=== PATIENT | male | born 1960 | race Caucasian/White ===

== ENCOUNTER → 2016-12-12 | Day surgery (SDC) | payer OTHER ==
[~2016-12-12] MED LIST: ATOR10TA60 PO; HYDROmorphone 2 MG/ML VIAL IV PRN; INSU100V SQ; INSU3INS SQ; IV RINGERS,LACTATED 1000ML 1,000 ML IV SCH; LIDO700A4 TP; LIDOCAINE 1% PF 2 ML VIAL. ID PRN; LIDOCAINE 2% PF Vial for OR 5 ML VIAL. ONE; LOSA25TA4 PO; MORPHINE SULFATE 2 MG/ML DISP.SYRIN. IV PRN; ONDANSETRON PF 4 MG/2 ML VIAL. IV PRN; PIOG1TAB24 PO; PREG200C PO; PROCHLORPERAZINE 10 MG/2 ML VIAL. IV PRN; PROPOFOL 20 ML IV ONE; PROPOFOL 40 ML IV ONE; fentaNYL PF VIAL 100 MCG/2 ML VIAL IV PRN
[2016-12-12 08:26] VITALS: BP 100/61
== END | disposition home or self-care (01) ==
LOC: ENDOS 06:50
PROVIDERS: ATTEND Internal Medicine Gastroenterology
DX: K57.30 Diverticulosis of large intestine without perforation or abscess without bleeding (principal); K64.0 First degree hemorrhoids; Z80.0 Family history of malignant neoplasm of digestive organs; F41.9 Anxiety disorder, unspecified; F32.9 Major depressive disorder, single episode, unspecified; E78.00 Pure hypercholesterolemia, unspecified; I10 Essential (primary) hypertension; K21.9 Gastro-esophageal reflux disease without esophagitis; E11.9 Type 2 diabetes mellitus without complications; F17.210 Nicotine dependence, cigarettes, uncomplicated; Z98.890 Other specified postprocedural states; Z83.3 Family history of diabetes mellitus
CPT/HCPCS: 45378; J2704; J2001

== ENCOUNTER → 2017-01-07 | Outpatient (CLI) | payer OTHER ==
[2016-12-12 08:26] VITALS: BP 100/61
[~2017-01-07] MED LIST changes: -HYDROmorphone 2 MG/ML VIAL IV PRN; -IV RINGERS,LACTATED 1000ML 1,000 ML IV SCH; -LIDOCAINE 1% PF 2 ML VIAL. ID PRN; -LIDOCAINE 2% PF Vial for OR 5 ML VIAL. ONE; -MORPHINE SULFATE 2 MG/ML DISP.SYRIN. IV PRN; -ONDANSETRON PF 4 MG/2 ML VIAL. IV PRN; -PROCHLORPERAZINE 10 MG/2 ML VIAL. IV PRN; -PROPOFOL 20 ML IV ONE; -PROPOFOL 40 ML IV ONE; -fentaNYL PF VIAL 100 MCG/2 ML VIAL IV PRN
--- NOTE | 2017-01-07 18:10 | RAD ---
Right upper quadrant abdominal ultrasound, 01/07/2017: History: Right upper quadrant pain The gallbladder is within normal limits in size. There is no sonographic evidence of cholelithiasis. The gallbladder wilkinson are not thickened. No bile duct dilatation is seen. The visualized portions of the liver and right kidney show no abnormality. The gallbladder was obscured by overlying bowel. IMPRESSION: No significant abnormality is detected, although the pancreas was obscured by overlying bowel.
== END | disposition home or self-care (01) ==
LOC: US 15:30
PROVIDERS: ATTEND Internal Medicine Gastroenterology
DX: R10.11 Right upper quadrant pain (principal)
CPT/HCPCS: 76705

== ENCOUNTER 2017-06-30 07:50 | Outpatient (CLI) | payer OTHER ==
[2017-06-30] MEDS ORDERED: LIDOCAINE 2% 20 ML VIAL. (08:42)
[2017-06-30 08:44] LABS: HEMATOCRIT 43.6 % (39.0-53.0); MEAN CORPUSCULAR HEMOGLOBIN 32 pg (25-35); MEAN CORPUSCULAR HGB CONC 35 g/dL (31-37); MEAN CORPUSCULAR VOLUME 93 fL (79-100); PLATELET COUNT 237 x10^3/uL (140-400); RED BLOOD COUNT 4.69 x10^6/uL (4.30-5.70); RED CELL DISTRIBUTION WIDTH 13.8 % (11.5-14.5); WHITE BLOOD COUNT 6.6 x10^3/uL (4.0-11.0)
[2017-06-30 08:56] LABS: ANION GAP 9 (6-14); BLOOD UREA NITROGEN 15 mg/dL (8-26); CALCIUM 8.7 mg/dL (8.5-10.1); CARBON DIOXIDE 28 mmol/L (21-32); CHLORIDE 104 mmol/L (98-107); CREATININE 0.8 mg/dL (0.7-1.3); GLUCOSE 329 mg/dL (70-99); SODIUM 141 mmol/L (136-145)
[2017-06-30] MEDS ORDERED: MIDAZOLAM HCL/PF 2 MG/2 ML VIAL. (09:03)
[2017-06-30] MEDS ORDERED: fentaNYL PF VIAL 100 MCG/2 ML VIAL (09:03)
[2017-06-30 09:05] LABS: PARTIAL THROMBOPLASTIN TIME 26 SEC (24-38)
[2017-06-30] MEDS: LIDOCAINE 2% 20 ML VIAL. IJ (09:34)
[2017-06-30] MEDS: IODIXANOL 320 MG/ML 100 ML VIAL. IART (09:34)
[2017-06-30] MEDS: MIDAZOLAM HCL/PF 2 MG/2 ML VIAL. IV (09:35)
[2017-06-30] MEDS: fentaNYL PF VIAL 100 MCG/2 ML VIAL IV (09:35)
[2017-06-30] MEDS ORDERED: CONTRAST GIVEN MC (09:45)
[2017-06-30] MEDS ORDERED: NITROGLYCERIN SUBLINGUAL 0.4 MG BOTTLE OF 25. SL (10:00)
[2017-06-30] MEDS ORDERED: 0.9 % SODIUM CHLORIDE 10 ML DISP.SYRIN. IV (10:00)
== END 2017-06-30 11:44 | disposition home or self-care (01) ==
LOC: CCL 07:50
DX: R94.39 Abnormal result of other cardiovascular function study (principal); I10 Essential (primary) hypertension; Z72.0 Tobacco use; E78.00 Pure hypercholesterolemia, unspecified; K21.9 Gastro-esophageal reflux disease without esophagitis; E11.9 Type 2 diabetes mellitus without complications
CPT/HCPCS: 36415; 80048; 85027; 85610; 85730; 93458; 99152; C1769; C1771; C1892; G0269; J1644; J2250; J3010